=== PATIENT | female | born 1985 | race Two or more races ===

== ENCOUNTER 2017-09-23 09:25 | Inpatient (IN) | payer OTHER ==
[2017-09-23] MEDS ORDERED: CITRIC ACID/SODIUM CITRATE 30 ML UNIT-DOSE CUP PO ONE (10:38)
[2017-09-23] MEDS ORDERED: METHYLERGONOVINE MALEATE 0.2 MG/1 ML AMP IM PRN (10:40)
[2017-09-23] MEDS ORDERED: BENZOCAINE 28 GM HEMORRHOIDAL OINTMENT TP PRN (10:40)
[2017-09-23] MEDS ORDERED: WITCH HAZEL 50% (TUCKS) 40 PAD/JAR PAD TP PRN (10:40)
[2017-09-23] MEDS ORDERED: IBUPROFEN 800 MG/8 ML IJ IVPB PRN (10:40)
[2017-09-23] MEDS ORDERED: oxyCODONE HCL 5 MG TABLET PO PRN (10:40)
[2017-09-23] MEDS ORDERED: D5W-LR W/ 20 UNITS OXYTOCIN 20 UNIT/1,000 ML INFUS.BAG IV SCH (10:45)
[2017-09-23] MEDS ORDERED: ELECTROLYTE-148 SOLN 1,000 ML IV SCH (10:45)
--- NOTE | 2017-09-23 10:51 | HP ---
Past Medical History - Primary Care Physician PCP:: Nancy eLyva - Admission Chief Complaint: Demise at 37 weeks History Source: Patient - Past Medical History ...: 2 ...Para: 1 ...Term: 1 - Past Surgical History Past Surgical History: Yes: None Hx Myomectomy: No Hx Transabdominal Cerclage: No - Smoking History Smoking history: Never smoked Have you smoked in the past 12 months: No - Alcohol/Substance Use Hx Alcohol Use: No - Social History Usual Living Arrangement: Yes: With Spouse History of Recent Travel: No Home Medications - Allergies Allergies/Adverse Reactions: Allergies Allergy/AdvReac Type Severity Reaction Status Date / Time No Known Allergies Allergy Verified 09/23/17 19:01 - Home Medications Home Medications: Ambulatory Orders Pnv No.95/Ferrous Fum/Folic AC [ Vitamin Tablet] 1 each PO DAILY Review of Systems - Review of Systems Constitutional: reports: No Symptoms Eyes: reports: No Symptoms HENT: reports: No Symptoms Neck: reports: No Symptoms Cardiovascular: reports: No Symptoms Respiratory: reports: No Symptoms Gastrointestinal: reports: No Symptoms Genitourinary: reports: No Symptoms Breasts: reports: No Symptoms Reported Musculoskeletal: reports: No Symptoms Integumentary: reports: No Symptoms Neurological: reports: No Symptoms Endocrine: reports: No Symptoms Hematology/Lymphatic: reports: No Symptoms Psychiatric: reports: No Symptoms Physical Exam - Maternity Constitutional: Yes: Well Nourished, No Distress HENT: Yes: WNL Neck: Yes: WNL Cardiovascular: Yes: WNL, Regular Rate and Rhythm Lungs: Clear to auscultation - Abdominal Exam/OB Fundal Height: 40 Number of Fetuses: Single Presentation: Transverse Contractions: No - Physical Exam Musculoskeletal: Yes: WNL Extremities: Yes: WNL Edema: No Hemorrhage Risk Assessment - Risk Factors Risk Score: 0 Risk Level: Low Risk Problem List - Problems (1) demise > 22 weeks, delivered, current hospitalization Code(s): O36.4XX0 - MATERNAL CARE FOR INTRAUTERINE , NOT APPLICABLE OR UNSP Assessment/Plan IUP at 37 weeks Demise Plan ELective Section
[2017-09-23 10:53] VITALS: BMI 34.7
--- NOTE | 2017-09-23 11:07 | OP ---
Operative Note - Note: Operative Date: 09/23/17 Pre-Operative Diagnosis: Demise at 37 weeks. Elective Section Operation: Primary low transverse Section Findings: demise at 37 week Post-Operative Diagnosis: Same as Pre-op Surgeon: Nancy Leyva Paperback Machine Operator: Ronak Lazcano Anesthesia: Spinal Estimated Blood Loss (mls): 600 Operative Report Dictated: Yes
[2017-09-23 11:15] LABS: BASO % 0.4 % (0-2.0); EOS % 0.6 % (0-4.5); MCHC 33.3 g/dl (32.0-36.0); MEAN PLT VOLUME 8.6 fl (7.5-11.1); NEUT % 74.7 % (42.8-82.8); PLATELET COUNT 227 K/MM3 (134-434); RDW 12.7 % (11.6-15.6); WHITE BLOOD COUNT 6.8 K/mm3 (4.0-10.0)
[2017-09-23 11:32] LABS: INR 0.97 (0.82-1.09)
[2017-09-23 11:35] LABS: ACTIVATED PTT 25.9 SECONDS (26.9-34.4)
[2017-09-23 11:43] LABS: ANION GAP 9 (8-16); CALCIUM 8.5 mg/dL (8.5-10.1); CO2 23 mmol/L (21-32); CREATININE 0.4 mg/dL (0.55-1.02); GLUCOSE,RANDOM 89 mg/dL (74-106)
[2017-09-23] MEDS ORDERED: RHO(D) IMMUNE GLOBULIN 1,500 UNIT DISP.SYRIN IM ONE (11:48)
[2017-09-23] MEDS ORDERED: SODIUM CHLORIDE 0.9% P/F 10 ML VIAL IJ ONE (11:54)
[2017-09-23] MEDS ORDERED: morphine SULFATE/Preservative Free 0.5 MG/ML (1cc Syringe) ONE (11:54)
[2017-09-23] MEDS ORDERED: ceFAZolin SODIUM 1 GM VIAL ONE (11:54)
[2017-09-23] MEDS ORDERED: ePHEDrine SULFATE 50 MG/1 ML AMPULE ONE (12:03)
[2017-09-23] MEDS ORDERED: PHENYLEPHRINE HCL 10 MG/1 ML SINGLE DOSE VIAL ONE (12:06)
[2017-09-23] MEDS ORDERED: ONDANSETRON 4 MG/2 ML VIAL IVPUSH PRN (12:10)
[2017-09-23] MEDS ORDERED: OXYTOCIN 10 UNITS/ML VIAL ONE (12:12)
[2017-09-23] MEDS ORDERED: KETOROLAC TROMETHAMINE 30 MG/1 ML VIAL ONE (12:16)
[2017-09-23] MEDS ORDERED: OXYTOCIN 20 UNITS in 0.9% NS 20 UNIT/1,000 ML INFUS.BAG IV SCH (13:15)
[2017-09-23] MEDS ORDERED: OXYTOCIN 20 UNITS in 0.9% NS 20 UNIT/1,000 ML INFUS.BAG IV ONE (14:37)
--- NOTE | 2017-09-24 06:22 | PN ---
Progress Note (SOAP) - Subjective History of Present Illness: Pt doing ok - Current Medications Current Medications: Active Medications Benzocaine (Americaine Ointment -) 1 applic TP PRN PRN PRN Reason: PAIN Bisacodyl (Dulcolax Suppository -) 10 mg RC PRN PRN PRN Reason: CONSTIPATION Diphenhydramine HCl (Benadryl Injection -) 25 mg IVPUSH Q4H PRN PRN Reason: ITCHINESS Last Admin: 09/24/17 06:18 Dose: 25 mg Parenteral Electrolytes (Plasma-Lyte 148 -) 1,000 mls @ 125 mls/hr IV ASDIR ON LICENSE OF [facility] Last Admin: 09/23/17 10:15 Dose: 125 mls/hr Oxytocin/Sodium Chloride (Normal Saline+20 Units Oxytocin -) 20 unit in 1,000 mls @ 100 mls/hr IV ASDIR ON LICENSE OF [facility] Last Admin: 09/23/17 14:41 Dose: 100 mls/hr Ibuprofen (Caldolor Injection -) 800 mg IVPB Q8H PRN PRN Reason: PAIN OR FEVER Last Admin: 09/24/17 00:00 Dose: 800 mg Ibuprofen (Motrin -) 600 mg PO Q4H PRN PRN Reason: PAIN Methylergonovine Maleate (Methergine Injection -) 0.2 mg IM Q4H PRN PRN Reason: Excessive Bleeding (L&D) Ondansetron HCl (Zofran Injection) 4 mg IVPUSH Q4H PRN PRN Reason: NAUSEA Oxycodone HCl (Roxicodone -) 5 mg PO Q4H PRN PRN Reason: PAIN LEVEL 1-5 Oxycodone HCl (Roxicodone -) 10 mg PO Q4H PRN PRN Reason: PAIN LEVEL 6-10 Multivit/Folic Acid/Iron ( Vitamins (Sjr) -) 1 tab PO DAILY NICOLLE Simethicone (Mylicon -) 80 mg PO Q4H PRN PRN Reason: GAS Witch Flores/Glycerin (Tucks Pads -) 1 pad TP PRN PRN PRN Reason: PAIN - Objective Vital Signs: Vital Signs Temperature 97.9 F 09/24/17 02:00 Pulse Rate 76 09/24/17 02:00 Respiratory Rate 20 09/24/17 05:00 Blood Pressure 90/48 09/24/17 02:00 O2 Sat by Pulse Oximetry (%) 100 09/23/17 13:45 Constitutional: Yes: Well Nourished, No Distress Gastrointestinal: Yes: WNL Genitourinary: Yes: WNL ....Post : Yes: Uterus firm, Uterus non-tender Breast(s): Yes: WNL Musculoskeletal: Yes: WNL Extremities: Yes: WNL Edema: No Wound/Incision: Yes: Clean/Dry, Well Approximated Neurological: Yes: WNL, Alert, Oriented Labs Lab Results: CBC, BMP 09/23/17 11:08 09/23/17 11:08 Problem List - Problems (1) demise > 22 weeks, delivered, current hospitalization Code(s): O36.4XX0 - MATERNAL CARE FOR INTRAUTERINE , NOT APPLICABLE OR UNSP Assessment/Plan POD1 demise Plan OOB percocet
[2017-09-24] MEDS: IBUPROFEN 600 MG TABLET (FP) PO PRN ×4 (06:23→20:12)
[2017-09-24 08:47] LABS: BASO # 0.1 # (0.1-1); BASO % 1.2 % (0-2.0); EOS # 0.1 # (0-4.5); EOS % 0.8 % (0-4.5); LYMPH # 1.4 (8-40); MCH 28.1 pg (25.7-33.7); MCHC 33.1 g/dl (32.0-36.0); MEAN CELL VOLUME 85.1 fl (80-96); MEAN PLT VOLUME 8.8 fl (7.5-11.1); MONO # 0.4 # (3.8-10.2); NEUT # 6.3 # (42.8-82.8); NEUT % 76.2 % (42.8-82.8); PLATELET COUNT 208 K/MM3 (134-434); RDW 12.9 % (11.6-15.6); WHITE BLOOD COUNT 8.3 K/mm3 (4.0-10.0)
[2017-09-24] MEDS: PRENATAL VITAMINS W/ FOLIC ACID TABLET (FP) PO SCH (10:08)
[2017-09-24] MEDS: ACETAMINOPHEN 325 MG TABLET (FP) PO PRN ×3 (10:11→20:13)
[2017-09-24] MEDS: SIMETHICONE 80 MG TAB.CHEW (FP) PO PRN ×3 (10:13→20:12)
[2017-09-24] MEDS ORDERED: BISACODYL 10 MG SUPP.RECT RC PRN (10:41)
--- NOTE | 2017-09-24 14:39 | PN ---
Progress Note (short form) - Note Progress Note: PT day #1 s/p csection with duramorph spinal. Pt had some itching yesterday which was relived by demetrice. Today, itching is much decreased. Pain is minimal. PT doing well
[2017-09-25] MEDS: IBUPROFEN 600 MG TABLET (FP) PO PRN ×3 (00:06→13:50)
[2017-09-25] MEDS: ACETAMINOPHEN 325 MG TABLET (FP) PO PRN ×3 (07:48→20:48)
[2017-09-25] MEDS: SIMETHICONE 80 MG TAB.CHEW (FP) PO PRN ×3 (07:49→20:48)
--- NOTE | 2017-09-25 08:28 | PN ---
Post Progress Note - Subjective Subjective: 31 yo , status post delivery of a demise, seen and evaluated. She's ambulating but doesn't feel well. Her mood is sad. She has no suicidal ideation. Post Day: 2 Type of Delivery: Primary C/S Vital Signs: Vital Signs Temperature 97.7 F 09/24/17 20:54 Pulse Rate 89 09/24/17 20:54 Respiratory Rate 20 09/24/17 20:54 Blood Pressure 114/68 09/24/17 20:54 O2 Sat by Pulse Oximetry (%) 100 09/23/17 13:45 Breast Exam: Yes: Soft Uterus: Yes: Fundus Firm Incision: Yes: Dressing dry and intact Abdomen/GI: Yes: Abdomen soft Lochia: Yes: Rubra Lochia, amount: Small Extremities: Yes: Calves non-tender Perineum: Yes: Intact Activity: Ambulating - Labs Labs: CBC WBC 8.3 K/mm3 (4.0-10.0) 09/24/17 08:32 RBC 3.49 M/mm3 (3.60-5.2) L 09/24/17 08:32 Hgb 9.8 GM/dL (10.7-15.3) L D 09/24/17 08:32 Hct 29.7 % (32.4-45.2) L D 09/24/17 08:32 MCV 85.1 fl (80-96) 09/24/17 08:32 MCH 28.1 pg (25.7-33.7) 09/24/17 08:32 MCHC 33.1 g/dl (32.0-36.0) 09/24/17 08:32 RDW 12.9 % (11.6-15.6) 09/24/17 08:32 Plt Count 208 K/MM3 (134-434) 09/24/17 08:32 MPV 8.8 fl (7.5-11.1) 09/24/17 08:32 Absolute Neuts (auto) 6.3 # (42.8-82.8) L 09/24/17 08:32 Absolute Lymphs (auto) 1.4 (8-40) L 09/24/17 08:32 Absolute Monos (auto) 0.4 # (3.8-10.2) L 09/24/17 08:32 Absolute Eos (auto) 0.1 # (0-4.5) 09/24/17 08:32 Absolute Basos (auto) 0.1 # (0.1-1) 09/24/17 08:32 Neutrophils % 76.2 % (42.8-82.8) 09/24/17 08:32 Lymphocytes % 17.4 % (8-40) 09/24/17 08:32 Monocytes % 4.4 % (3.8-10.2) 09/24/17 08:32 Eosinophils % 0.8 % (0-4.5) 09/24/17 08:32 Basophils % 1.2 % (0-2.0) 09/24/17 08:32 Assessment/Plan Status post demise Pastoral care Continue close observation
[2017-09-25] MEDS: PRENATAL VITAMINS W/ FOLIC ACID TABLET (FP) PO SCH (10:27)
[2017-09-25] MEDS: oxyCODONE HCL 5 MG TABLET PO PRN (20:45)
[2017-09-25 21:51] VITALS: PULSE 69
[2017-09-26] MEDS: oxyCODONE HCL 5 MG TABLET PO PRN (02:42)
[2017-09-26] MEDS: ACETAMINOPHEN 325 MG TABLET (FP) PO PRN ×2 (02:43→09:40)
[2017-09-26 08:23] LABS: BASO % 0.7 % (0-2.0); EOS # 0.1 # (0-4.5); EOS % 2.7 % (0-4.5); MCH 28.3 pg (25.7-33.7); MCHC 33.2 g/dl (32.0-36.0); MEAN CELL VOLUME 85.3 fl (80-96); MEAN PLT VOLUME 8.2 fl (7.5-11.1); MONO # 0.3 # (3.8-10.2); NEUT # 2.7 # (42.8-82.8); NEUT % 52.6 % (42.8-82.8); PLATELET COUNT 208 K/MM3 (134-434); WHITE BLOOD COUNT 5.1 K/mm3 (4.0-10.0)
[2017-09-26 08:40] VITALS: BP 107/70; TEMP 97.6
[2017-09-26] MEDS: PRENATAL VITAMINS W/ FOLIC ACID TABLET (FP) PO SCH (09:37)
[2017-09-26] MEDS: IBUPROFEN 600 MG TABLET (FP) PO PRN (09:38)
[2017-09-26] MEDS: SIMETHICONE 80 MG TAB.CHEW (FP) PO PRN (09:40)
--- NOTE | 2017-09-28 15:00 | PATH ---
Surgical Pathology Report Patient Name: VIOLETA RUFF [facility]. Rec. #: [id number] /Age/Gender: 1985 (Age: 31) / F Account: [id number] Location: [facility] OBS/SPECIAL NEEDS CAREGIVER Taken: 09/23/2017 Received: 09/24/2017 Reported: 09/28/2017 Physicians: Nancy Leyva M.D. Specimen(s) Received PLACENTA Clinical History , 37 weeks gestation, demise x1, 10/27/14 Infertility-Clomid used, vaginal bleeding in History of depression, Rh- Rhogam given Final Diagnosis PLACENTA, SECTION: 327 G THIRD TRIMESTER PLACENTA WITH TRIVASCULAR, HYPERCOILED (10 COILS/10 CM), FOCALLY HEMORRHAGIC UMBILICAL CORD WITH VELAMENTOUS INSERTION, FOCAL INTRAPARENCHYMAL INFARCT (LESS THAN 10% OF PLACENTAL SURFACE) AND PLACENTAL MEMBRANES WITH RARE HEMOSIDERIN LADEN MACROPHAGES. Electronically Signed Salma Dobson M.D. Gross Description The specimen is received fresh labeled placenta and is a 327 gram, 11.5 x 11.5 x 3.8 cm. placenta with attached membranes and umbilical cord. The attached membranes are spence, translucent with focal opacities and insert marginally. The red-brown, dusky umbilical cord measures 33 cm. in length and averages 0.8 cm. in diameter. The cord inserts velamentously. The cord appears hypercoiled. No true knots or strictures are identified. Cut surface of the umbilical cord reveals 3 vessels. The surface is washburn blue with moderate fibrin deposition and appropriate caliber vessels. The maternal surface is red-brown with focal defects. Sectioning reveals a 1.0 cm in greatest dimension hemorrhagic intraparenchymal lesion. The remaining placental parenchyma is red-brown and spongy. Central Service Tech sections are submitted in 4 cassettes as follows: 1-membrane roll and umbilical cord; 2-lesion; 3-4-full thickness sections of placenta. 09/24/201709/24/2017
== END 2017-09-26 12:25 | disposition home or self-care (01) | DRG 540 ==
LOC: JLDR 09:25 → J3W 15:28
PROVIDERS: ADMIT Obstetrics & Gynecology; ATTEND Obstetrics & Gynecology
PROC: 10D00Z1 Extraction of Products of Conception, Low, Open Approach (ICD-10-PCS; principal; 2017-09-23)
DX: O36.4XX0 Maternal care for intrauterine death, not applicable or unspecified (principal); Z3A.37 37 weeks gestation of pregnancy; Z37.1 Single stillbirth
CPT/HCPCS: 36415; 80048; 85025; 85461; 85610; 85730; 86593; 86850; 86900; 86901; 86999; 88307-TC; 94010; J1561

== ENCOUNTER 2018-12-09 06:50 | Inpatient (IN) | payer OTHER ==
[2018-12-09] MEDS ORDERED: ELECTROLYTE-148 SOLN 500 ML IV ONE (07:17)
[2018-12-09] MEDS ORDERED: CITRIC ACID/SODIUM CITRATE 30 ML UNIT-DOSE CUP PO ONE (07:17)
[2018-12-09] MEDS ORDERED: ELECTROLYTE-148 SOLN 1,000 ML IV SCH (07:30)
[2018-12-09 07:53] VITALS: BMI 35.4
[2018-12-09] MEDS ORDERED: OXYTOCIN 20 UNITS in 0.9% NS 20 UNIT/1,000 ML INFUS.BAG IV ONE (08:01)
[2018-12-09] MEDS ORDERED: ONDANSETRON 4 MG/2 ML VIAL IVPUSH PRN (08:53)
[2018-12-09] MEDS ORDERED: morphine SULFATE/Preservative Free 0.5 MG/ML (1cc Syringe) ONE (09:02)
[2018-12-09] MEDS ORDERED: METHYLERGONOVINE MALEATE 0.2 MG/1 ML AMP IM PRN (09:03)
--- NOTE | 2018-12-09 09:03 | HP ---
Past Medical History - Primary Care Physician PCP:: Adrienne Carlos - Admission Chief Complaint: Here for repeat c section History of Present Illness: 33 y/o with SIUP at 38 weeks with h/o prior c section here for repeat c section. H/O IUFD at 37 weeks. Recommendation per MFM to to repeat c section/ delivery at 38 weeks. complicated otherwise only by maternal obesity. Pt declines TOLAC. Rh negative, s/p Rhogam. History Source: Patient, Medical Record Limitations to Obtaining History: No Limitations - Past Medical History MANAGER AUDIO: No: CVA, Syncope Cardiovascular: No: HTN Pulmonary: No: Asthma Gastrointestinal: No: GERD ...: 3 ...Para: 2 ...Term: 1 ...: 0 ...LMP: 03/23/18 ... Weeks Gestation by Dates: 37.2 ...EDC by Dates: 12/28/18 ...EDC by Sono: 12/22/18 Heme/Onc: No: Anemia Infectious Disease: No: HIV, MRSA, STD's Psych: No: Anxiety, Bipolar - Past Surgical History Past Surgical History: Yes: None Hx Myomectomy: No Hx Transabdominal Cerclage: No - Smoking History Smoking history: Never smoked Have you smoked in the past 12 months: No - Alcohol/Substance Use Hx Alcohol Use: No - Social History History of Recent Travel: No Home Medications - Allergies Allergies/Adverse Reactions: Allergies Allergy/AdvReac Type Severity Reaction Status Date / Time No Known Allergies Allergy Verified 12/01/18 11:13 - Home Medications Home Medications: Ambulatory Orders Pnv No.95/Ferrous Fum/Folic AC [ Vitamin Tablet] 1 each PO DAILY Review of Systems - Review of Systems Constitutional: reports: No Symptoms Eyes: reports: No Symptoms HENT: reports: No Symptoms Neck: reports: No Symptoms Cardiovascular: reports: No Symptoms Respiratory: reports: No Symptoms Gastrointestinal: reports: No Symptoms Genitourinary: reports: No Symptoms Breasts: reports: No Symptoms Reported Musculoskeletal: reports: No Symptoms Integumentary: reports: No Symptoms Neurological: reports: No Symptoms Endocrine: reports: No Symptoms Hematology/Lymphatic: reports: No Symptoms Psychiatric: reports: No Symptoms Physical Exam - Maternity Vital Signs: Vital Signs Temperature 97.9 F 12/09/18 07:46 Pulse Rate 62 12/09/18 07:46 Respiratory Rate 20 12/09/18 07:46 Blood Pressure 109/50 L 12/09/18 07:46 O2 Sat by Pulse Oximetry (%) Constitutional: Yes: Well Nourished, No Distress, Calm Eyes: Yes: Conjunctiva Clear, EOM Intact HENT: Yes: Atraumatic, Normocephalic Neck: Yes: Supple, Trachea Midline Cardiovascular: Yes: Regular Rate and Rhythm Lungs: Clear to auscultation - Abdominal Exam/OB Fundal Height: 38 Number of Fetuses: Single Presentation: Vertex Contractions: No Category: I Accelerations: Uniform Decelerations: None - Vaginal Exam/OB Vaginal Bleediing: No Speculum Exam: No - Physical Exam Psychiatric: Yes: Alert, Oriented Hemorrhage Risk Assessment - Risk Factors Medium Risk Factors: Yes: Prior , uterine surgery,or multiple laparotomies High Risk Factors: Yes: None Risk Score: 1 Risk Level: Medium Risk Problem List - Problems (1) Previous delivery, antepartum Code(s): O34.219 - MATERNAL CARE FOR UNSP TYPE SCAR FROM PREVIOUS DEL (2) Rh negative status during Code(s): O26.899 - OTH RELATED CONDITIONS, UNSPECIFIED TRIMESTER; Z67.91 - UNSPECIFIED BLOOD TYPE, RH NEGATIVE Assessment/Plan 33 y/o with SIUP at 38 weeks here for repeat c section with h/o IUFD FHTs cat 1 R/B/A for the procedure discussed informed consent signed NPO Castellanos nursery/anesthesia aware
[2018-12-09] MEDS ORDERED: OXYTOCIN 20 UNITS in 0.9% NS 20 UNIT/1,000 ML INFUS.BAG IV SCH (09:15)
[2018-12-09] MEDS ORDERED: OXYTOCIN 10 UNITS/ML VIAL ONE (09:23)
[2018-12-09] MEDS ORDERED: TUBERCULIN PPD 5 TU/0.1ML SYRINGE (IN PATIENT USE ONLY) ID ONE (09:30)
[2018-12-09] MEDS: PRENATAL VITAMINS W/ FOLIC ACID TABLET (FP) PO SCH (10:36)
[2018-12-09] MEDS: IBUPROFEN 800 MG/8 ML IJ IVPB PRN (15:57)
[2018-12-10] MEDS: IBUPROFEN 800 MG/8 ML IJ IVPB PRN (00:57)
[2018-12-10] MEDS: SIMETHICONE 80 MG TAB.CHEW (FP) PO PRN ×4 (07:21→22:44)
[2018-12-10] MEDS: ACETAMINOPHEN 325 MG TABLET (FP) PO PRN ×2 (07:21→12:23)
[2018-12-10] MEDS: IBUPROFEN 600 MG TABLET (FP) PO PRN ×4 (07:23→21:29)
[2018-12-10 07:26] LABS: HEMATOCRIT 34.6 % (32.4-45.2); HEMOGLOBIN 11.9 GM/dL (10.7-15.3); LYMPH % 20.6 % (8-40); MCH 29.3 pg (25.7-33.7); MCHC 34.4 g/dl (32.0-36.0); MEAN CELL VOLUME 85.2 fl (80-96); MEAN PLT VOLUME 8.5 fl (7.5-11.1); MONO % 5.2 % (3.8-10.2); NEUT % 71.2 % (42.8-82.8); PLATELET COUNT 226 K/MM3 (134-434); RBC 4.06 M/mm3 (3.60-5.2); RDW 13.5 % (11.6-15.6); WHITE BLOOD COUNT 6.9 K/mm3 (4.0-10.0)
[2018-12-10] MEDS: PRENATAL VITAMINS W/ FOLIC ACID TABLET (FP) PO SCH (09:37)
--- NOTE | 2018-12-10 10:42 | PN ---
Progress Note (short form) - Note Progress Note: Anesthesiology: POD #1 - s/p under spinal anesthesia with duramorph. Pt. doing well, resting comfortably in bed. No complaints. Good pain control. No apparent anesthetic complications noted. Continue current care.
--- NOTE | 2018-12-10 11:10 | PN ---
Post Progress Note - Subjective Subjective: 33 yo Para 2 status post delivery, seen and evaluated. Doing well. Post Day: 1 Type of Delivery: Repeat C/S Vital Signs: Vital Signs Temperature 97.7 F 12/10/18 08:55 Pulse Rate 80 12/10/18 08:55 Respiratory Rate 20 12/10/18 08:55 Blood Pressure 86/52 L 12/10/18 08:55 O2 Sat by Pulse Oximetry (%) Breast Exam: Yes: Soft Uterus: Yes: Fundus Firm Incision: Yes: Dressing dry and intact Abdomen/GI: Yes: Abdomen soft, Tolerating PO Lochia: Yes: Rubra Lochia, amount: Small Extremities: Yes: Calves non-tender Activity: Other (She's lying in bed) - Labs Labs: CBC WBC 6.9 K/mm3 (4.0-10.0) 12/10/18 07:00 RBC 4.06 M/mm3 (3.60-5.2) 12/10/18 07:00 Hgb 11.9 GM/dL (10.7-15.3) 12/10/18 07:00 Hct 34.6 % (32.4-45.2) 12/10/18 07:00 MCV 85.2 fl (80-96) 12/10/18 07:00 MCH 29.3 pg (25.7-33.7) 12/10/18 07:00 MCHC 34.4 g/dl (32.0-36.0) 12/10/18 07:00 RDW 13.5 % (11.6-15.6) 12/10/18 07:00 Plt Count 226 K/MM3 (134-434) 12/10/18 07:00 MPV 8.5 fl (7.5-11.1) 12/10/18 07:00 Absolute Neuts (auto) 4.9 K/mm3 (1.5-8.0) 12/10/18 07:00 Neutrophils % 71.2 % (42.8-82.8) 12/10/18 07:00 Lymphocytes % 20.6 % (8-40) 12/10/18 07:00 Monocytes % 5.2 % (3.8-10.2) 12/10/18 07:00 Eosinophils % 2.0 % (0-4.5) D 12/10/18 07:00 Basophils % 1.0 % (0-2.0) 12/10/18 07:00 Nucleated RBC % 0 % (0-0) 12/10/18 07:00 Problem List - Problems (1) Status post Code(s): Z98.891 - HISTORY OF UTERINE SCAR FROM PREVIOUS SURGERY Assessment/Plan Status post Ambulation Analgesia as needed Continue post op car
--- NOTE | 2018-12-10 11:29 | OP ---
Operative Note - Note: Operative Date: 12/09/18 Pre-Operative Diagnosis: SIUP at 38 weeks, history of prior c section Operation: repeat low transverse section Post-Operative Diagnosis: Same as Pre-op Surgeon: Adrienne Carlos Directional Bore Operator: Ronak Lazcano Anesthesiologist/RETAIL STORE ASSOCIATE: Patience Donahue Anesthesia: Spinal Estimated Blood Loss (mls): 700 Operative Report Dictated: Yes
--- NOTE | 2018-12-10 12:46 | OP ---
DATE OF OPERATION: 12/09/2018 PREOPERATIVE DIAGNOSES: Single intrauterine at 38 weeks, prior history of intrauterine demise at 37 weeks, prior history of delivery, declined trial of labor after . PROCEDURE: Repeat low transverse section. SURGEON: Adrienne Carlos DO SAMPLE DISTRIBUTOR: ALESSANDRA Moore ANESTHESIA: MASOOD Tomas, providing spinal anesthesia. ESTIMATED BLOOD LOSS: 700 mL. COMPLICATIONS: None. SPECIMENS REMOVED: Placenta. COUNTS: Sponge, needle and instrument count correct. DISPOSITION: Stable to PACU. BRIEF HISTORY AND PROCEDURE: Patient is a 33-year-old female with a prior history of an intrauterine demise who had a prior delivery and declined trial of labor. Was admitted to [facility] on December 09, 2018, for scheduled repeat at 38 weeks. Consent for the procedure was signed upon admission. Patient was taken back to the operating room, given spinal anesthesia and placed in the dorsal supine position. Castellanos catheter was placed under sterile conditions. She was prepped and draped in the usual sterile fashion and a hard timeout was performed. A Pfannenstiel skin incision was created in the skin with a scalpel and carried to the underlying layer of rectus fascia sharply. The fascia was incised on either side of the midline sharply and the fascial incision was carried in a superolateral direction sharply. The fascia was tented upward and dissected off the underlying layer of rectus muscle sharply. The musculature was identified, laterally and the peritoneum was entered bluntly and dissected to allow for adequate room for delivery. A bladder blade was inserted. A transverse incision was created in the lower uterine segment which was extended in a superolateral direction bluntly. The infant then was delivered from the right occiput transverse position. Bilateral shoulders delivered with ease along with the remainder of the infant. Delayed cord clamping was completed for 60 seconds. The cord was then clamped twice and cut in between. The infant was taken over to the warmer to be assessed by Neonatology who was present for the entire delivery. Placenta was then delivered intact. It was manually extracted and sent to Pathology for evaluation. The uterus was exteriorized from the abdomen, inspected and cleared of all amniotic membrane and debris with a dry lap sponge. The hysterotomy was reapproximated in a double-layer closure first using 1 Vicryl in a running locked fashion, 2nd layer using 0 Biosyn in a running fashion and excellent hemostasis was achieved. Bilateral tubes and ovaries were noted to be normal. The posterior cul-de-sac was suctioned of any blood and fluid. The uterus was placed back into the abdomen. Bilateral gutters were inspected and cleared of all debris and blood clot. The hysterotomy was again noted to be hemostatic. Peritoneum was reapproximated in a running fashion using 2-0 chromic. The musculature was reapproximated with interrupted sutures. The fascia was reapproximated using 1 Vicryl in a running fashion. Subcuticular tissue was irrigated and reapproximated using 1 Vicryl in a running fashion. The skin was reapproximated using 3-0 Vicryl in a subcuticular fashion. Steri-Strips were applied. Sponge, needle and instrument count was reported to be correct. The patient tolerated the procedure well, went to the recovery room in stable condition after the procedure. ADRIENNE CARLOS DO /[id number] MTDD
[2018-12-10] MEDS ORDERED: DIPHTH,PERTUSS(ACELL),TET 0.5 ML DISP.SYRIN IM ONE ×2 (15:45→16:00)
[2018-12-10] MEDS: oxyCODONE HCL 5 MG TABLET PO PRN ×2 (16:49→21:28)
[2018-12-11] MEDS: SIMETHICONE 80 MG TAB.CHEW (FP) PO PRN ×4 (03:08→20:04)
[2018-12-11] MEDS: oxyCODONE HCL 5 MG TABLET PO PRN ×4 (03:08→20:05)
[2018-12-11] MEDS: IBUPROFEN 600 MG TABLET (FP) PO PRN ×4 (03:08→20:04)
--- NOTE | 2018-12-11 07:50 | PN ---
Post Progress Note - Subjective Subjective: 33 yo Para 2, status post repeat , seen and evaluated. Doing well. Post Day: 2 Type of Delivery: Repeat C/S Vital Signs: Vital Signs Temperature 97.9 F 12/10/18 22:00 Pulse Rate 72 12/10/18 22:00 Respiratory Rate 20 12/10/18 22:00 Blood Pressure 91/60 12/10/18 22:00 O2 Sat by Pulse Oximetry (%) Breast Exam: Yes: Soft Uterus: Yes: Fundus below umbilicus Incision: Yes: Dressing dry and intact Abdomen/GI: Yes: Abdomen soft, Tolerating PO Lochia: Yes: Rubra Lochia, amount: Small Extremities: Yes: Calves non-tender Activity: Ambulating - Labs Labs: CBC WBC 6.9 K/mm3 (4.0-10.0) 12/10/18 07:00 RBC 4.06 M/mm3 (3.60-5.2) 12/10/18 07:00 Hgb 11.9 GM/dL (10.7-15.3) 12/10/18 07:00 Hct 34.6 % (32.4-45.2) 12/10/18 07:00 MCV 85.2 fl (80-96) 12/10/18 07:00 MCH 29.3 pg (25.7-33.7) 12/10/18 07:00 MCHC 34.4 g/dl (32.0-36.0) 12/10/18 07:00 RDW 13.5 % (11.6-15.6) 12/10/18 07:00 Plt Count 226 K/MM3 (134-434) 12/10/18 07:00 MPV 8.5 fl (7.5-11.1) 12/10/18 07:00 Absolute Neuts (auto) 4.9 K/mm3 (1.5-8.0) 12/10/18 07:00 Neutrophils % 71.2 % (42.8-82.8) 12/10/18 07:00 Lymphocytes % 20.6 % (8-40) 12/10/18 07:00 Monocytes % 5.2 % (3.8-10.2) 12/10/18 07:00 Eosinophils % 2.0 % (0-4.5) D 03/09/19 07:00 Basophils % 1.0 % (0-2.0) 12/10/18 07:00 Nucleated RBC % 0 % (0-0) 12/10/18 07:00 Problem List - Problems (1) Status post Code(s): Z98.891 - HISTORY OF UTERINE SCAR FROM PREVIOUS SURGERY Assessment/Plan Status post Ambulation Analgesia as needed Continue post op care
[2018-12-11] MEDS: PRENATAL VITAMINS W/ FOLIC ACID TABLET (FP) PO SCH (09:38)
[2018-12-11] MEDS: BISACODYL 10 MG SUPP.RECT RC PRN (21:17)
[2018-12-12] MEDS: SIMETHICONE 80 MG TAB.CHEW (FP) PO PRN ×4 (04:39→21:40)
[2018-12-12] MEDS: IBUPROFEN 600 MG TABLET (FP) PO PRN ×4 (04:39→21:41)
[2018-12-12] MEDS: oxyCODONE HCL 5 MG TABLET PO PRN ×4 (04:40→21:40)
[2018-12-12 06:57] LABS: BASO % 0.6 % (0-2.0); EOS % 3.9 % (0-4.5); HEMATOCRIT 32.1 % (32.4-45.2); HEMOGLOBIN 11.3 GM/dL (10.7-15.3); LYMPH % 37.8 % (8-40); MCH 30.4 pg (25.7-33.7); MCHC 35.2 g/dl (32.0-36.0); MEAN CELL VOLUME 86.2 fl (80-96); MEAN PLT VOLUME 8.6 fl (7.5-11.1); MONO % 6.8 % (3.8-10.2); NEUT % 50.9 % (42.8-82.8); PLATELET COUNT 210 K/MM3 (134-434); RBC 3.73 M/mm3 (3.60-5.2); RDW 13.5 % (11.6-15.6); WHITE BLOOD COUNT 5.1 K/mm3 (4.0-10.0)
[2018-12-12] MEDS: PRENATAL VITAMINS W/ FOLIC ACID TABLET (FP) PO SCH (09:11)
--- NOTE | 2018-12-12 10:19 | PN ---
Post Progress Note - Subjective Subjective: 33 yo Para 2 status post repeat , seen and evaluated. Doing well. Post Day: 3 Type of Delivery: Repeat C/S Vital Signs: Vital Signs Temperature 98.6 F 12/12/18 07:30 Pulse Rate 60 12/12/18 07:30 Respiratory Rate 18 12/12/18 07:30 Blood Pressure 105/55 L 12/12/18 07:30 O2 Sat by Pulse Oximetry (%) Breast Exam: Yes: Soft Uterus: Yes: Fundus Firm Incision: Yes: Sutures intact Abdomen/GI: Yes: Abdomen soft, Tolerating PO Lochia: Yes: Rubra Lochia, amount: Small Activity: Ambulating - Labs Labs: CBC WBC 5.1 K/mm3 (4.0-10.0) 12/12/18 06:10 RBC 3.73 M/mm3 (3.60-5.2) 12/12/18 06:10 Hgb 11.3 GM/dL (10.7-15.3) 12/12/18 06:10 Hct 32.1 % (32.4-45.2) L 12/12/18 06:10 MCV 86.2 fl (80-96) 12/12/18 06:10 MCH 30.4 pg (25.7-33.7) 12/12/18 06:10 MCHC 35.2 g/dl (32.0-36.0) 12/12/18 06:10 RDW 13.5 % (11.6-15.6) 12/12/18 06:10 Plt Count 210 K/MM3 (134-434) 12/12/18 06:10 MPV 8.6 fl (7.5-11.1) 12/12/18 06:10 Absolute Neuts (auto) 2.6 K/mm3 (1.5-8.0) 12/12/18 06:10 Neutrophils % 50.9 % (42.8-82.8) D 12/12/18 06:10 Lymphocytes % 37.8 % (8-40) D 12/12/18 06:10 Monocytes % 6.8 % (3.8-10.2) 12/12/18 06:10 Eosinophils % 3.9 % (0-4.5) D 12/12/18 06:10 Basophils % 0.6 % (0-2.0) 12/12/18 06:10 Nucleated RBC % 0 % (0-0) 12/12/18 06:10 Problem List - Problems (1) Status post Code(s): Z98.891 - HISTORY OF UTERINE SCAR FROM PREVIOUS SURGERY Assessment/Plan Status post Ambulation Analgesia as needed Continue post op care
[2018-12-12] MEDS: BISACODYL 10 MG SUPP.RECT RC PRN (21:52)
[2018-12-13] MEDS: oxyCODONE HCL 5 MG TABLET PO PRN (06:20)
[2018-12-13] MEDS: SIMETHICONE 80 MG TAB.CHEW (FP) PO PRN (06:20)
[2018-12-13] MEDS: IBUPROFEN 600 MG TABLET (FP) PO PRN (06:20)
--- NOTE | 2018-12-13 07:10 | DS ---
Physical Exam-SORTER UPHOLSTERY PARTS Vital Signs: Vital Signs Temperature 98.2 F 12/12/18 22:00 Pulse Rate 71 12/12/18 22:00 Respiratory Rate 20 12/12/18 22:00 Blood Pressure 103/69 12/12/18 22:00 O2 Sat by Pulse Oximetry (%) Constitutional: Yes: Well Nourished Eyes: Yes: Conjunctiva Clear HENT: Yes: Atraumatic Neck: Yes: Supple Cardiovascular: Yes: Regular Rate and Rhythm Respiratory: Yes: Regular Gastrointestinal: Yes: Normal Bowel Sounds External Genitalia: Yes: Normal Wound/Incision: Yes: Sutures Intact Neurological: Yes: Alert, Oriented ...Motor Strength: WNL Psychiatric: Yes: Alert, Oriented Labs: CBC, BMP 12/12/18 06:10 Delivery - Delivery Type of Anesthesia: Spinal Episiotomy/Laceration: None EBL (cc): 700 Delivery, Single - Stages of Labor Date of Delivery: 12/09/18 Time of Delivery: 09:25 Time Placenta Delivered: 09:24 - Condition of Infant Hot Top Liner Helper/Anesthesiology Medical Doctor Present: Yes Name: Leonora Brizuela Infant Gender: Female Weight: 6 lb 11 oz Position: Right, OA Total Hours ROM (Hrs/Mins): 1min - 1 Minute Total Score: 9 5 Minutes Total Score: 9 - [place] Feeding Plan Initial Plan: Elected not to breastfeed exclusively throughout hospitalization Discharge Summary Reason For Visit: REPEAT SECTON Current Active Problems Previous delivery, antepartum (Acute) Rh negative status during (Acute) Status post (Acute) Procedures: Principal: Repeat Hospital Course: Routine post op care Condition: Stable - Instructions Diet, Activity, Other Instructions: Regular diet No driving, no lifting x 4 weeks. F/U with MD in 1 week. Disposition: HOME - Home Medications Comprehensive Discharge Medication List: Ambulatory Orders Pnv No.95/Ferrous Fum/Folic AC [ Vitamin Tablet] 1 each PO DAILY
[2018-12-13] MEDS: PRENATAL VITAMINS W/ FOLIC ACID TABLET (FP) PO SCH (10:27)
[2018-12-13 11:55] VITALS: BP 105/56; PULSE 64; TEMP 98.4
--- NOTE | 2018-12-26 12:10 | PATH ---
Surgical Pathology Report Patient Name: VIOLETA RUFF [facility]. Rec. 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 Specimen(s) Received PLACENTA Clinical History term 1, 1, x1, 2017, stillborn at 37 weeks Final Diagnosis PLACENTA, DELIVERY: SMALL (324 GRAM) THIRD TRIMESTER PLACENTA WITH SUBCHORIONIC FIBRIN DEPOSITION, VELAMENTOUSLY INSERTED THREE VESSEL UMBILICAL CORD, AND UNREMARKABLE PLACENTAL MEMBRANES. Electronically Signed Luca White M.D. Gross Description The specimen is received fresh labeled placenta and is a 324 gram, 12.0 x 12.0 x 3.2 cm. placenta with attached membranes and umbilical cord. The attached membranes are spence, thick, cloudy and insert marginally. The umbilical cord measures 26 cm. in length and averages 1.1 cm. in diameter. The cord displays velamentous insertion. No true knots or strictures are identified. Cut surface of the umbilical cord reveals 3 vessels. The surface is washburn-blue with minimal fibrin deposition and appropriate caliber vessels. The maternal surface is red-brown and intact. Sectioning reveals red-brown, spongy parenchyma. No lesions are identified. [place] sections are submitted in three cassettes as follows: 1- membrane rolls and umbilical cord; 2-3- full thickness sections of placenta. 12/23/2018 [facility]12/23/2018
== END 2018-12-13 11:55 | disposition home or self-care (01) | DRG 540 ==
LOC: JLDR 06:50 → J3W 12:28
PROVIDERS: ADMIT Obstetrics & Gynecology; ATTEND Obstetrics & Gynecology
PROC: 10D00Z1 Extraction of Products of Conception, Low, Open Approach (ICD-10-PCS; principal; 2018-12-09)
DX: O34.211 Maternal care for low transverse scar from previous cesarean delivery (principal); O36.0930 Maternal care for other rhesus isoimmunization, third trimester, not applicable or unspecified; Z3A.38 38 weeks gestation of pregnancy; Z37.0 Single live birth
CPT/HCPCS: 36415; 85025; 85461; 86999; 88307-TC; 90715

== ENCOUNTER 2020-12-31 04:41 | Day surgery (SDC) | payer OTHER ==
[2020-12-31 11:02] VITALS: BMI 31.8
[2020-12-31] MEDS ORDERED: MIDAZOLAM HCL 2 MG/2 ML SINGLE DOSE VIAL ONE (13:29)
[2020-12-31] MEDS ORDERED: SUCCINYLCHOLINE CHLORIDE 200 MG/10 ML SYRINGE ONE (13:30)
[2020-12-31] MEDS ORDERED: PROPOFOL 20 ML ONE ×2 (13:30)
[2020-12-31] MEDS ORDERED: EPHEDRINE SULFATE/0.9% NACL/PF 50 MG/10 ML SYRINGE NR ONE (13:30)
[2020-12-31] MEDS ORDERED: KETOROLAC TROMETHAMINE 30 MG/1 ML VIAL ONE (13:35)
[2020-12-31] MEDS ORDERED: LIDOCAINE HCL/PF 2% SDV 5ML VIAL ONE (13:35)
[2020-12-31] MEDS ORDERED: ONDANSETRON 4 MG/2 ML VIAL ONE (13:35)
[2020-12-31] MEDS ORDERED: ACETAMINOPHEN 500 MG TABLET (FP) PO PRN (14:36)
[2020-12-31] MEDS ORDERED: ONDANSETRON 4 MG/2 ML VIAL IVPUSH PRN (14:36)
[2020-12-31] MEDS ORDERED: ACETAMINOPHEN INJECTION 100 ML IVPB ONE (15:38)
[2020-12-31] MEDS ORDERED: ACETAMINOPHEN 1000 MG/100 ML VIAL (NON FORMULARY) IVPB ONE ×2 (15:40→16:13)
[2020-12-31] MEDS ORDERED: IBUPROFEN 400 MG TABLET (FP) PO PRN (15:48)
[2020-12-31] MEDS ORDERED: ACETAMINOPHEN 325 MG TABLET (FP) PO PRN (15:48)
[2020-12-31] MEDS ORDERED: RHO(D) IMMUNE GLOBULIN 1,500 UNIT DISP.SYRIN IM ONE (16:19)
[2020-12-31 18:48] VITALS: BP 102/60; PULSE 63; TEMP 98
== END 2020-12-31 18:50 | disposition home or self-care (01) ==
LOC: JASU-SURG 04:41
PROVIDERS: ATTEND Obstetrics & Gynecology
PROC: 10D17ZZ Extraction of Products of Conception, Retained, Via Natural or Artificial Opening (ICD-10-PCS; principal; 2020-12-31 13:00)
DX: O02.1 Missed abortion (principal)
CPT/HCPCS: 86999; 88305-TC; 94760; J0131; J1561